=== PATIENT | male | born 1950 | race Caucasian/White ===

== ENCOUNTER 2016-10-17 07:51 | Day surgery (SDC) | payer OTHER ==
[~2016-10-17 07:51] MED LIST: FENTANYL 250 MCG/5 ML AMP IV PRN; IV START KIT ONE; LACTATED RINGERS 1,000 ML IV SCH; LACTATED RINGERS 1,000 ML ONE; MIDAZOLAM HCL 5 MG/5 ML VIAL IV PRN
[2016-10-17] MEDS ORDERED: FENTANYL 250 MCG/5 ML AMP ONE (08:41)
[2016-10-17] MEDS ORDERED: MIDAZOLAM HCL 5 MG/5 ML VIAL ONE (08:41)
--- NOTE | 2016-10-21 11:45 | SURGPATH ---
[facility] [address] [place] [id number] Patient Name: GARTH COBIAN MR#: [id number] : 1950 Gender: M Specimen #: [id number] Collected: 10/17/2016 Received: 10/18/2016 Reported: 10/21/2016 Submitting Phys: RHONA BOTELLO Copy To Phys: [facility] Clinical History / Pre-Operative Diagnosis: HISTORY OF POLYPS; FAMILY HISTORY Specimen Source / Surgical Procedure Performed: SPLENIC FLEXURE POLYP Interpretation: COLON, SPLENIC FLEXURE, BIOPSY: - TWO HYPERPLASTIC POLYPS. - NO EVIDENCE OF ADENOMATOUS CHANGE OR MALIGNANCY. Electronically Signed Out Moy Lujan M.D., Ph.D. Gross Description: The specimen is received in a formalin filled container labeled with the patient's name and "splenic flexure". Two duran-carlton biopsies are 0.3 and 0.4 cm. Totally embedded in one cassette. Eh Dodd, P.A. Microscopic Description: Examination of multiple levels from the colon biopsy at the splenic flexure shows two fragments of colonic mucosa with dilated and hyperplastic glands. There is no evidence of adenomatous change or malignancy. 1: 14711 K63.5
== END 2016-10-17 10:21 | disposition home or self-care (01) ==
LOC: SDC 07:51
PROVIDERS: ATTEND Internal Medicine Gastroenterology
PROC: 0DBL8ZX Excision of Transverse Colon, Via Natural or Artificial Opening Endoscopic, Diagnostic (ICD-10-PCS; principal; 2016-10-17)
DX: Z12.11 Encounter for screening for malignant neoplasm of colon (principal); K63.5 Polyp of colon; K57.30 Diverticulosis of large intestine without perforation or abscess without bleeding; Z86.010 Personal history of colon polyps; Z80.0 Family history of malignant neoplasm of digestive organs; I10 Essential (primary) hypertension; E78.5 Hyperlipidemia, unspecified; R12 Heartburn; Z79.82 Long term (current) use of aspirin